=== PATIENT | female | born 2000 | race Caucasian/White ===

== ENCOUNTER 2024-11-28 10:30 | Outpatient (REF) | payer OTHER, SELFPAY ==
[2024-11-28 12:09] LABS: MANUAL DIFF FLAG NO
[2024-11-28 12:30] LABS: Hematocrit 38.0 % (37.0-47.0); Hemoglobin 12.8 g/dl (12.0-16.0); Imm Gran Abs Auto 0.01 X10*3/uL (0.00-0.03); Imm Gran Pct Auto 0.2 % (0.0-0.4); Lymphocytes Absolute Auto 1.8 X10*3/uL (1.2-4.9); Mean Corpuscular HGB Conc 33.7 g/dl (31.0-35.0); Mean Corpuscular Hemoglobin 29.9 pg (27.0-33.0); Mean Corpuscular Volume 88.8 fL (80.0-98.0); NRBC Abs Auto 0.000 X10*3/uL (0.0-0.012); NRBC Pct Auto 0.0 /100WBC (0.0-0.2); Platelet Count 258 X10*3/uL (160-400); Red Blood Count 4.28 X10*6/uL (4.20-5.50); White Blood Count 6.2 X10*3/uL (4.8-10.8)
[2024-11-28 13:07] LABS: Alanine Aminotransferase 22 U/L (0-31); Albumin Level 4.5 g/dL (3.5-5.0); Alkaline Phosphatase 49 U/L (39-117); Anion Gap 11 (12-20); Aspartate Amino Transferase 25 U/L (5-31); Blood Urea Nitrogen 15 mg/dL (9-16); Calcium 8.9 mg/dL (8.4-10.2); Carbon Dioxide 23 mmol/L (22-29); Chloride 109 mmol/L (96-108); Estimated Glomerular Filt Rate > 60; Potassium 4.4 mmol/L (3.3-5.1); Sodium 139 mmol/L (135-145); Total Protein 7.4 g/dL (6.5-8.0)
--- OUTSIDE RECORDS SUMMARY | 2024-11-28 13:25 | XMS_ITS | Patient Health Record ---
Author Organization [facility] Address [address] [place] [id number] Care Team Providers Care Aboriginal Education Worker Coordinator Name Role Phone RAPHAEL ORANTES MD, KARY Primary Care Provider Unavail able HERMAN CHOI, VASU Unavailable [phone] Reason For Referral No Information Medications Medication SIG (Take, Route, Frequency, Duration) Notes Start Date End Date Status EpiPen 2-Sam 0.3 MG/0.3ML 0.3 mg intramuscularly once; Duration: 1 dose(s) 01/01/2013 Active Benadryl Allergy 25 MG 1 tab(s) orally 3 times a day; Duration: 5 day(s) Active Loratadine 10 MG 1 tab(s) orally prn; Duration: 30 day(s) Active Plan Of Treatment No Information Insurance Providers Payer Name Payer Address Payer Phone Subscriber Number Group Number Insured Name Patient Relationship to Insured Coverage Start Date Coverage End Date [facility] [address] [place] [address] [id number] Aretha Gamboa Child - Insured has Financial Responsibility 3
[2024-11-28 13:37] LABS: Folate 12.2 ng/mL (> or = 4.0); Vitamin B12 388 pg/mL (200-900)
== END 2024-11-28 10:31 | disposition home or self-care (01) ==
LOC: HO.LAB 10:30
DX: Z00.00 Encounter for general adult medical examination without abnormal findings (principal); D22.9 Melanocytic nevi, unspecified; N94.10 Unspecified dyspareunia; Z13.21 Encounter for screening for nutritional disorder; Z13.0 Encounter for screening for diseases of the blood and blood-forming organs and certain disorders involving the immune mechanism; Z13.1 Encounter for screening for diabetes mellitus; Z13.29 Encounter for screening for other suspected endocrine disorder
CPT/HCPCS: 36415; 80053; 82306; 82607; 82746; 84443; 85025; 90471; 90715; 96127

== ENCOUNTER 2024-11-28 10:30 | Outpatient (AMB) | payer OTHER, SELFPAY ==
[2024-11-28 10:36] VITALS: BP 108/58; PULSE 77; O2SAT 99; BMI 18.9
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
--- OUTSIDE RECORDS SUMMARY | 2024-11-28 11:55 | XMS_ITS | Clinical Summary ---
Author Organization [facility] Address [address] [place] [address] Phone Support Name Relationship Address Phone Channing Gamboa Father [id number] [place] [address] Care Team Providers Care Internet Marketing Coordinator Name Role Phone Poly Edmonds MD Primary Care Provider [phone] Immunizations Immunization Administration Dates Next Due DTaP 5 01/18/2005, 1,06/21/2000, 001,02/23/2000 Hep A, ped/adol 12/17/2012,12/19/2011 Hep B, ped/adol 10/07/2000,01/22/2000,1999 Hib (PRP-T) 05/01/2001, 1,04/24/2000, 000 IPV 01/12/2004, 1,04/24/2000, 000 Influenza, intranasal, quadrivalent 11/26,12/19/2011,12/20/2010, 010 MMR 01/18/2005,05/01/2001 Meningococcal Conj (Menactra) MCV4P 12/20/2010 Pneumococcal Conjugate 09/07/2001,2000,04/24/2000, 000 Tdap 12/20/2010 Varicella 12/20/2010,12/20/2000 Family History Relation Name Status Comments Father Alive healthy age: 59 diagnosed with CONDITN INFLU HEALTH NEC Mother Alive healthy age: 56 diagnosed with CONDITN INFLU HEALTH NEC Social History Tobacco Use Types Packs/Day Years Used Date Smoking Tobacco: Never Assessed Comments Unknown Sex and Gender Information Value Date Recorded Sex Assigned at Not on file Legal Sex Female 2:45 PM EDT Gender Identity Not on file Sexual Orientation Not on file Last Filed Vital Signs Vital Sign Reading Time Taken Comments Blood Pressure 104/66 03/21/2017 12:00 AM EST Pulse 97 03/21/2017 12:00 AM EST Temperature 36.6 C (97.8 F) 03/21/2017 12:00 AM EST Respiratory Rate - - Oxygen Saturation 99% 03/21/2017 12: 00 AM EST Inhaled Oxygen Concentration - - Weight 89.3 kg (196 lb 12.8 oz) 017 12:00 AM EST Height 163.5 cm (5' 4.38 ) 03/21/2017 1 2:00 AM EST Body Mass Index 33.39 03/21/2017 12:00 AM EST Plan of Treatment Health Maintenance Due Date Last Done Comments HPV Vaccines (1 - 3-dose series) 12/14/2014 DTaP,Tdap,and Td Vaccines (6 - Td or Tdap) 12/20/2020 12/20/2010, 01/18/2005, 09/07/2000, Additional history exists Influenza Vaccines (#1) 2024 12/18/19 13, 12/19/2011, 12/20/2010, Additional history exists COVID-19 Vaccine ( season) 2024 Hepatitis B Vaccines Completed 10/07/2000, 01/22/2000, 1999 HIB Vaccines Completed 05/01/2001, 05/26, 04/24/2000, Additional history exists Pneumococcal Vaccine Completed 09/07/2001, 06/21/2000, 04/24/2000, Additional history exists IPV Vaccines Completed 01/12/2004, 11/26, 04/24/2000, Additional history exists MMR Vaccines Completed 01/18/2005, 05/01/2001 Meningococcal Vaccine Aged Out 12/20/2010 No melisa wilfred eligible based on patient's age to complete this topic Varicella Vaccines Completed 12/20/2010, 12/20/2000 Hepatitis A Vaccines Completed 12/17/2012, 12/19/19 12 Men B Vaccine Aged Out No longer elig ible based on patient's age to complete this topic Procedures * Due to [place] state law, this organization might not be sharing sensitive test results. Procedure Name Priority Date/Time Associated Diagnosis Comments CHLAMYDIAN GONORRHOEAE RNA TMA Routine 06/22/2016 from Last 3 Months or Most Recently Relevant to Health Maintenance Results * Due to [place] state law, this organization might not be sharing sensitive test results. * CHLAMYDIAN GONORRHOEAE RNA TMA (06/22/2016) C. TRACHOMATIS RNA, TMA(Conversion) NOT DETECTED CONVERTED LABS NEISSERIA GONORRHOEAE(Con version) NOT DETECTED NOT DETECTED CONVERTED LABS 06/22/2016 Narrative CONVERTED LABS - 06/23/2016 12:00 AM EDT Result Received: [facility] GC and CT both not detected us Poly Edmonds MD EXTERNAL RESULTS CONSOLE Final R esult CONVERTED LABS from Last 3 Months or Most Recently Relevant to Health Maintenance Care Teams Internet Marketing Coordinator Relationship Specialty Start Date End Date Poly Edmonds MD [address] [place] [address] & [place] [address] PCP - General 12/13/18
--- OUTSIDE RECORDS SUMMARY | 2024-11-28 11:55 | XMS_ITS | Encounter Summary ---
Author Organization [facility] Address [address] [place] [address] Phone Care Team Providers Care Radiology Practitioner Assistant Name Role Phone Poly Edmonds MD Primary Care Provider Encounter Details Date Type Department Care Team (Late st Contact Info) Description 05/26/2019 Conversion [facility]counter [facility] [address] [address] Poly Edmonds MD [address] [place] [id number] Social History Tobacco Use Types Packs/Day Years Used Date Smoking Tobacco: Never Assessed Comments Unknown Sex and Gender Information Value Date Recorded Sex Assigned at Not on file Legal Sex Female 2:45 PM EDT Gender Identity Not on file Sexual Orientation Not on file documented as of this encounter Plan of Treatment Not on file documented as of this encounter Visit Diagnoses Not on filedocumented in this encounter Care Teams Radiology Practitioner Assistant Relationship Specialty Start Date End Date Poly Edmonds MD [address] [place] [id number] PCP - General 12/13/18 documented as of this encounter
== END 2024-11-28 11:31 | disposition home or self-care (01) ==
LOC: HO.HMCH 10:31
DX: Z00.00 Encounter for general adult medical examination without abnormal findings (principal); D22.9 Melanocytic nevi, unspecified; N94.10 Unspecified dyspareunia; Z23 Encounter for immunization